=== PATIENT | male | born 1940 | race Caucasian/White ===

== ENCOUNTER 2019-10-11 09:21 | Day surgery (SDC) | payer MEDICARE, OTHER ==
[~2019-10-11] VITALS: Ht 177.8 cm; Wt 115.3 kg
[~2019-10-11 09:21] MED LIST: ALBIPROI; ALBU90OI INH; ASMANEX TWISTHALER PO; ASMANEX110 MC1 INH; ASPI81EC; ASPI81EC PO; BENZ100A PO; CLOT10 SUSW; CYCL10; D MANNOSE; DIGO.125 PO; DISO100ER PO; DISO150; DOC250 PO; DRON400T PO; GLUC500 PO; HYDACE5 PO; HYOS.125 PO; HYOS.125 SL; Hydrocodone-Ap1 EA23 PO; LEVA.63IS IH; LEVA.63IS INH; LORA10ER PO; LOSA25; LOSA50 PO; LOVA40; LOVA40 PO; METO25ER PO; MOME220I INH; OMEP20ER; OMEP20ER PO; OXYC5; PROP10 PO; SIMV40 PO; TAMS.4ER PO; THEO200ERC; THEO400 PO; Toprol Xl50 MG PO; Viagra100 MG PO; WARF5 PO; WARF7.5 PO; [UNRECOGNIZED DRUG - CODE] PO
--- NOTE | 2019-10-11 10:10 | NUR ---
10/11/19 1010 Erin Jimenez FIRST IV ATTEMPT IN RIGHT HAND INFILTRATED. SECOND ATTEMPT IN LEFT HAND WAS SUCCESSFUL AND TOLERATED WELL. BOTH BY [facility].RCL
--- NOTE | 2019-10-11 11:33 | NUR ---
10/11/19 1133 Vianey Corcoran LOWER DENTURES RETURNED TO PATIENT POST-PROCEDURE IN ENDO ROOM; PT PLACED.
== END 2019-10-11 11:54 | disposition home or self-care (01) ==
LOC: ORSCSDS 09:21
PROVIDERS: Internal Medicine Gastroenterology
PROC: 0DB58ZX Excision of Esophagus, Via Natural or Artificial Opening Endoscopic, Diagnostic (ICD-10-PCS; principal; 2019-10-11 10:45)
PROC: 0DB68ZX Excision of Stomach, Via Natural or Artificial Opening Endoscopic, Diagnostic (ICD-10-PCS; principal; 2019-10-11 10:45)
PROC: 0DB98ZX Excision of Duodenum, Via Natural or Artificial Opening Endoscopic, Diagnostic (ICD-10-PCS; principal; 2019-10-11 10:45)
DX: K22.70 Barrett's esophagus without dysplasia (principal); K31.7 Polyp of stomach and duodenum; K29.80 Duodenitis without bleeding; Z87.891 Personal history of nicotine dependence; I10 Essential (primary) hypertension; I48.0 Paroxysmal atrial fibrillation; Z79.01 Long term (current) use of anticoagulants; Z79.899 Other long term (current) drug therapy
CPT/HCPCS: 88305; 88312; 88342; J2001; J2704; J7120

== ENCOUNTER → 2020-03-20 | Outpatient (CLI) | payer MEDICARE, OTHER | END | disposition home or self-care (01) | LOC: PLD 07:44 → LAB SHORT 07:44 | DX: D48.5 Neoplasm of uncertain behavior of skin (principal) | CPT/HCPCS: 88305 ==

== ENCOUNTER → 2021-11-04 | Outpatient (CLI) | payer MEDICARE, OTHER | END | disposition home or self-care (01) | LOC: LAB SHORT 11:14 | DX: L57.0 Actinic keratosis (principal) | CPT/HCPCS: 88305 ==

== ENCOUNTER → 2022-03-09 | Outpatient (CLI) | payer MEDICARE, OTHER | END | disposition home or self-care (01) | LOC: LAB SHORT 15:07 → PLD 15:07 | DX: L57.0 Actinic keratosis (principal) | CPT/HCPCS: 88305 ==

== ENCOUNTER 2022-10-02 09:42 | Day surgery (SDC) | payer MEDICARE, OTHER ==
[~2022-10-02] VITALS: Ht 188 cm; Wt 112.3 kg
== END 2022-10-02 13:10 | disposition home or self-care (01) ==
LOC: ORSCSDS 09:42
PROVIDERS: Internal Medicine Gastroenterology
PROC: 0DBM8ZX Excision of Descending Colon, Via Natural or Artificial Opening Endoscopic, Diagnostic (ICD-10-PCS; principal; 2022-10-02 11:15)
PROC: 0DBP8ZX Excision of Rectum, Via Natural or Artificial Opening Endoscopic, Diagnostic (ICD-10-PCS; principal; 2022-10-02 11:15)
DX: K22.70 Barrett's esophagus without dysplasia (principal); Z12.11 Encounter for screening for malignant neoplasm of colon; Z86.010 Personal history of colon polyps; D12.4 Benign neoplasm of descending colon; K63.5 Polyp of colon; K57.30 Diverticulosis of large intestine without perforation or abscess without bleeding; I10 Essential (primary) hypertension; J45.909 Unspecified asthma, uncomplicated; I48.91 Unspecified atrial fibrillation; Z79.01 Long term (current) use of anticoagulants; Z79.899 Other long term (current) drug therapy; Z87.891 Personal history of nicotine dependence
CPT/HCPCS: 88305; J0330; J0461; J2405; J2704; J7120; Q9968

== ENCOUNTER → 2023-09-24 | Outpatient (CLI) | payer MEDICARE, OTHER ==
[2023-09-24 08:09] LABS: Source, Urine Voided
[2023-09-24 09:17] LABS: Appearance, Urine Clear (Clear); Bilirubin, Urine Neg (Neg); Blood, Urine 1+ (Neg); Color, Urine Yellow (P-Yellow); Glucose Qualitative, Urine Neg (Normal); Ketones, Urine Neg (Neg); Leukocyte Esterase, Urine 2+ (Neg); Nitrite, Urine Neg (Neg); Protein, Urine Neg (Neg); Specific Gravity, Urine 1.015 (1.003-1.022); Urobilinogen, Urine NORM (Normal)
[2023-09-24 09:21] LABS: Bacteria Mod /hpf; Squamous Epithelial Cells Not Seen /hpf (Few)
== END | disposition home or self-care (01) ==
LOC: LAB SHORT 06:30
PROVIDERS: Physician Assistant
DX: R31.9 Hematuria, unspecified (principal)
CPT/HCPCS: 81001; 87077; 87086; 87186

== ENCOUNTER → 2024-06-12 | Outpatient (CLI) | payer MEDICARE | LOC: LAB SHORT 13:26 → LAB 13:26 | DX: R30.0 Dysuria (principal) | CPT/HCPCS: 87086 ==

== ENCOUNTER 2024-06-15 08:26 | Emergency (ER) | payer MEDICARE ==
[~2024-06-15] VITALS: Ht 185.4 cm; Wt 108.9 kg
[2024-06-15 09:27] LABS: BASOPHILS ABSOLUTE AUTO 0.03 K/mm3 (0.00-0.23); BASOPHILS PERCENT AUTO 0 % (0-2); EOSINOPHILS ABSOLUTE AUTO 0.02 K/mm3 (0.00-0.68); EOSINOPHILS PERCENT AUTO 0 % (0-6); Hematocrit 43.2 % (37.0-53.0); Hemoglobin 14.6 g/dL (13.5-17.5); IMMATURE GRAN ABSOLUTE AUTO 0.08 K/mm3 (0.00-0.10); IMMATURE GRAN PERCENT AUTO 1 % (0-1); LYMPHOCYTES ABSOLUTE AUTO 0.31 K/mm3 (0.84-5.20); LYMPHOCYTES PERCENT AUTO 3 % (21-46); MONOCYTES PERCENT AUTO 10 % (4-13); Mean Corpuscular HGB 30.8 pg (26.0-34.0); Mean Corpuscular HGB Conc 33.8 g/dL (31.5-36.5); Mean Corpuscular Volume 91 fL (80-100); Mean Platelet Volume 10.1 fL (9.1-12.4); NEUTROPHILS ABSOLUTE AUTO 9.97 K/mm3 (1.96-9.15); NEUTROPHILS PERCENT AUTO 87 % (41-73); Platelet Count 232 K/mm3 (150-400); RDW Coefficient Variation 14.8 % (11.7-14.2); RDW Standard Deviation 50.3 fL (35.1-46.3); Red Blood Cell Count 4.74 M/mm3 (4.30-5.90); White Blood Cell Count 11.51 K/mm3 (4.00-11.30)
[2024-06-15 09:35] LABS: Albumin, Blood 2.9 g/dL (3.4-5.0); Albumin/Globulin Ratio 0.8 (0.8-1.8); Bun/Creatinine Ratio 18.1 (12.0-20.0); Calcium, Blood 8.9 mg/dL (8.5-10.1); Creatinine, Blood 0.83 mg/dL (0.60-1.20); Globulin, Blood 3.8 g/dL (2.2-4.0); Potassium, Blood 3.9 mmol/L (3.5-5.5); Total Protein, Blood 6.7 g/dL (6.4-8.2)
[2024-06-15] MEDS ORDERED: Piperacillin/Tazobactam Sod 4.5 GM in NS 100 ML IV ONE (10:05)
[2024-06-15 10:27] LABS: Source, Urine Clean Catch
[2024-06-15 10:43] LABS: Appearance, Urine Clear (Clear); Blood, Urine 1+ (Neg); Color, Urine Amber (P-Yellow); Glucose Qualitative, Urine Neg (Neg); Ketones, Urine Neg (Neg); Leukocyte Esterase, Urine 3+ (Neg); Nitrite, Urine Neg (Neg); Protein, Urine 2+ (Neg); Urobilinogen, Urine 3+ (Normal)
[2024-06-15 10:47] LABS: Influenza A, PCR NEGATIVE (NEGATIVE); Influenza B, PCR NEGATIVE (NEGATIVE); Resp Syncytial Virus, PCR NEGATIVE (NEGATIVE); SARS-Cov-2 (COVID-19) PCR, MMC NEGATIVE (NEGATIVE)
[2024-06-15 11:06] LABS: Bilirubin, Urine 2+ (Neg)
[2024-06-15 11:08] LABS: Bacteria Few /hpf; Squamous Epithelial Cells Rare /hpf (Few)
[2024-06-15 11:30] VITALS: BP 116/61
== END 2024-06-15 11:58 | disposition home or self-care (01) ==
LOC: ER 08:26
PROVIDERS: Emergency Medicine
DX: K75.9 Inflammatory liver disease, unspecified (principal); Z88.8 Allergy status to other drugs, medicaments and biological substances; Z79.01 Long term (current) use of anticoagulants; Z79.899 Other long term (current) drug therapy
CPT/HCPCS: 0241U; 36415; 71046; 74177; 76705; 80053; 81001; 83605; 83690; 85025; 93005; 93010; 96365-59; 99285-25; J2543; Q9967

== ENCOUNTER 2024-12-15 07:18 | Emergency (ER) | payer OTHER ==
[~2024-12-15] VITALS: Ht 190.5 cm; Wt 111.1 kg
[2024-12-15 07:40] VITALS: BP 128/67
== END 2024-12-15 10:31 | disposition left against medical advice (07) ==
LOC: ER 07:18
DX: R53.1 Weakness (principal); R25.1 Tremor, unspecified; R11.0 Nausea; Z53.21 Procedure and treatment not carried out due to patient leaving prior to being seen by health care provider